=== PATIENT | male | born 1985 | race Caucasian/White ===

== ENCOUNTER 2024-11-25 01:21 | Day surgery (SDC) | payer OTHER, SELFPAY ==
[2024-11-16 10:12] VITALS: BMI 30.9
--- NOTE | 2024-11-16 10:22 | PC.NURSE ---
Report to the Outpatient Waiting Room, entrance under the green pavilion located off [facility], at time _0600_ on date _[id number]_. Planned Procedure Time: _0730_.? Time changes happen often and if your time is changed the preop area will call you the afternoon before. - You and your visitor will be asked to self-screen and do not enter if you have any COVID symptoms. Please call surgeon if you need to reschedule. - A mask is optional within the hospital at this time. Patients may have clear liquids (water, carbonated beverages, clear teas, apple juice) until 3 hours prior to surgery with a maximum of 20 ounces. - No food from midnight until time of surgery and no smoking, or chewing tobacco (or any form of nicotine). No chewing gum, candy or mints. Take only the following medications with a SIP of water on the morning of surgery: __None__ DO NOT STOP ANY OF YOUR OTHER PRESCRIPTION MEDICATIONS PRIOR TO SURGERY EXCEPT THE FOLLOWING Hold all vitamins and supplements for 3 days per anesthesiologist. Medications to discontinue per physician Date to take last dose Please no make-up, nail sinhala, hairspray, perfume, deodorant, or body powder the day of surgery.? No jewelry (including any body piercings) or valuables the day of surgery, leave them at home.? Please take a shower or bath the night before, or the morning of, surgery with an antibacterial soap.? Wear comfortable, loose fitting clothing.? - Jewelry must be removed prior to entering the operating room.? Rings and piercings that are not removed may be cut off. - The hospital will not accept responsibility for valuables.? - Please leave all valuables, including medications, at home the day of surgery. If you are going home after surgery, a licensed commercial driver must drive you home.? - NO public transportation without another adult if you receive anesthesia. - We recommend that an adult stay with you for 24 hours following discharge. - We also recommend that you do not drive, make important decision, drink alcoholic beverages, or take any drugs that were not prescribed by your health care provider for at least 24 hours after your discharge time. Follow any additional instructions given to you from your surgeon. Telephone instructions given to __Sanjay__and asked if any additional questions and then verbalized understanding. Patient advised to call surgeon office or pre surgery nurse liaison [phone] if any additional questions.
[2024-11-25] VITALS (7 sets, daily range): BP systolic 124–145; BP diastolic 60–87; PULSE 58–83; RESP 14–20; TEMP 36.4–36.8; O2SAT 97–100
--- NOTE | 2024-11-25 07:10 | P.PNAN_ITS ---
Anes - Initial Pre Proc Eval Procedure: Operation Date: 11/25/24 07:30 Proposed Procedures p Right Knee Arthroscopy, Proceed As Indicated - David Jansen MD Date/Time: 11/25/24 07:10 Surgeon: David Jansen MD Pre Op Diagnosis: right knee lateral meniscus tear Patient Data Age: 39 Gender: M Height: 1.78 m Weight: 97.7 kg Allergies Allergy/AdvReac Type Severity Reaction Status Date / Time shellfish derived Allergy Intermediate Rash Verified 11/21/24 12:58 Home Medications ?Medication ?Instructions ?Recorded ?Confirmed ?Type chlorhexidine gluconate 4 % 1 applic topical ONCE #237 mL 11/18/24 11/21/24 Rx topical liquid (Hibiclens) Patient hx anesthesia problems: none Family hx anesthesia problems: none Results Review: All pre-operative results and documents have been reviewed as part of the pre- operative evaluation. [facility] Social History Social History Years smoked: 4 Smoking status: Former smoker Tobacco type: cigarettes Smoking end date: 11/16/09 Alcohol intake: former Substance use type: does not use Living arrangements: with family Additional living arrangements comments: [place] housing Occupation/Education: occupation Additional occupation/education comments: [employer] Gender identity (if verbalized by the patient): Male Spiritual care concerns: No Anes - Eval Final PreProcedure Day of Procedure 11/25/24 07:10 Patient weight: obese Lungs: normal air movement Airway: Mallampati scale class II Neurological: alert and oriented Last oral intake: >/= 8 hours ASA classification: II Emergent: no Anesthetic plan: proceed Anesthesia type and monitoring: general LMA and standard monitoring Results Review: All pre-operative results and documents have been reviewed as part of the pre- operative evaluation. BMI 30, ex smoker quit approx 2009. Active without cp or sob. Informed Consent: The patient's anesthetic plan and its attendant risks and benefits were discussed with the patient/family/POA. Questions were solicited and answers provided to the satisfaction of the patient/family/POA.
[2024-11-25] MEDS: ACETAMINOPHEN 500 MG TABLET 1000 MG PO (07:15)
[2024-11-25] MEDS: CELECOXIB 200 MG CAPSULE PO (07:15)
[2024-11-25] MEDS: LACTATED RINGERS 1,000 ML 30 ML IV CONT ×2 (07:15→08:53)
--- NOTE | 2024-11-25 07:26 | WPDHPUPDATE1 ---
History and Physical Update Update Date/Time: 11/25/24 07:26 History and Physical has been reviewed, including an updated exam of the patient. There are NO changes in the patient's condition. Risks, benefits, and alternatives have been discussed and questions answered. Patient agrees to proceed with procedure.
[2024-11-25] MEDS: ceFAZolin 2 GM in SODIUM CHLORIDE 0.9% IV 50 ML 100 ML IVPB (07:40)
--- NOTE | 2024-11-25 08:58 | P.OP_ITS ---
Procedure Note - Detailed Date of Procedure 11/25/24 Pre-op Diagnosis right knee lateral meniscus tear Post-op Diagnosis Same Procedure Performed LEFT KNEE SCOPE Surgeon David Jansen MD Anesthesia General Description of Procedure PATIENT WAS TAKEN TO THE OR. LEFT LEG WAS PREPPED AND DRAPED STERILE. TROCARS W ERE PLACED IN THE USUAL FASHION. CAMERA WAS INTRODUCED. THERE WAS CHONDROMALACIA TO THE PATELLA FEMORAL JOINT. THERE WAS A LOT OF SYNOVITIS IN ALL COMPARTMENTS. THE MEDIAL COMPARTMENT SHOWED NO CHONDROMALACIA TO THE MEDIAL FEMORAL CONDYLE OR TO THE MEDIAL PLATEAU. THERE WAS NO TEAR TO THE MEDIAL MENISCUS. THE ACL WAS INTACT. THE LATERAL MENISCUS WAS TORN AND WAS RESECTED AT THE ROOT. THERE WAS CONTINUED ATTACHMENT OF THE ROOT TO THE CAPSULE. THE LATERAL COMPARTMENT HAD GRADE 2 CHONDROMALACIA. CHONDROPLASTY WAS PREFORMED. A SYNOVECTOMY WAS PREFORMED WELL. THE PATELLA UNDERWENT CHONDROPLASTY. THERE WAS GRADE 3 CHONDROMALACIA OF THE PATELLA. SYNOVECTOMY WAS PREFORMED IN THE SUPERIOR MEDIAL COMPARTMENT. THE WOUNDS WERE APPROXIMATED WITH 4.0 NYLON. STERILE DRESSING WAS APPLIED. PATIENT WAS EXTUBATED. Estimated Blood Loss -5.0 Complications No immediate complications Condition Stable Disposition PACU
[2024-11-25] MEDS: fentaNYL CITRATE INJ (*CRX) 100 MCG/2 ML VIAL 25 MCG IV PUSH ×3 (09:11→09:21)
[2024-11-25] MEDS: oxyCODONE HCL (*CRX) 5 MG TAB IR PO (09:58)
--- NOTE | 2024-11-25 10:39 | SUR.PHASEII ---
DR. RIVER CALLED TO CLARIFY ASPIRIN DOSAGE WHICH HE SAID IS 325 MG QD. MESSAGE RELAYED TO PATIENT.
--- NOTE | 2024-11-25 10:40 | SUR.PHASEII ---
PATIENT RETURNED DEMONSTRATION USING CRUTCHES; GOOD TECHNIQUE.
== END 2024-11-25 10:40 | disposition home or self-care (01) ==
PROVIDERS: Visit Provider Orthopaedic Surgery
PROC: (CPT 29870; principal; 2024-11-25 07:30)
DX: M23.351 Other meniscus derangements, posterior horn of lateral meniscus, right knee (principal); S83.281A Other tear of lateral meniscus, current injury, right knee, initial encounter; M94.261 Chondromalacia, right knee; M65.861 Other synovitis and tenosynovitis, right lower leg; Y93.A1 Activity, exercise machines primarily for cardiorespiratory conditioning; E66.9 Obesity, unspecified; Z68.31 Body mass index [BMI] 31.0-31.9, adult; Z87.891 Personal history of nicotine dependence
CPT/HCPCS: 29881; 29876; J0690; A9270; J1100; J2003; J2250; J2405; J2704; J3010; J7120